=== PATIENT | female | born 1985 | race Caucasian/White ===

== ENCOUNTER → 2016-11-05 | Outpatient (CLI) | payer BC ==
[2016-11-05 10:02] LABS: Basophils % (A) 0 %; CHCM 32.4; Eosinophils % (A) 1 %; HCT 38.1 % (34.0-46.0); HDW 2.19; HGB 12.3 gm/dL (11.4-16.0); Luc # (Auto) 0.09; Luc % (Auto) 1; Lymphocytes # (A) 1.4 k/uL (1.0-4.8); Lymphocytes % (A) 19 %; MCH 30.9 pg (25.0-35.0); MCHC 32.2 g/dL (31.0-37.0); Mean Platelet Volume 7.7; Monocytes # (A) 0.3 k/uL (0-1.0); Monocytes % (A) 4 %; Neutrophils # (A) 5.4 k/uL (1.3-7.7); Neutrophils % (A) 75 %; RBC 3.97 m/uL (3.80-5.40); RDW 13.2 % (11.5-15.5); WBC 7.3 k/uL (3.8-10.6); WBC (Perox) 7.96
[2016-11-05 10:07] LABS: Glucose 86 mg/dL (74-99); Non-African American GFR(MDRD) >60 (>60 ml/min/1.73 sqM)
[2016-11-05 10:39] LABS: Hepatitis B Surface Ag Index 0.05
[2016-11-05 10:58] LABS: Iron 117 ug/dL (37-170)
--- NOTE | 2016-11-05 15:41 | US ---
EXAMINATION TYPE: US OB <= 14 wk fetus DATE OF EXAM: 11/05/2016 COMPARISON: NONE CLINICAL HISTORY: Z36 Confirm dates and viability. Confirm dates EXAM PERFORMED: Transabdominal (TA) EXAM MEASUREMENTS: GESTATIONAL AGE / DATING Physician Established: (8 weeks/3 days) EDC: 06/14/2017 Dates by LMP: Unknown Dates by First Scan: This is 1st scan Dates by Current Scan for: (8 weeks/0 days) EDC: 06/17/2017 MATERNAL ANATOMY Uterus: 12.5 x 5.9 x 7.3cm, anteverted Right Ovary: 2.6 x 2.1 x 1.7cm Left Ovary: 3.1 x 2.8 x 2.3cm Post CDS / Adnexa: wnl Presence of free fluid: no Presence of corpus luteal cyst: 1.3 x 1.3 x 1.6cm hypoechoic area left ovary, probable corpus luteum Presence of subchorionic bleed: no GESTATION / SURVEY CRL: 1.5cm (8 weeks/0 days) Yolk Sac (normal less than 6mm): 3.7mm Heart Rate: 150 bpm Rhythm: Normal IUP: Viable IUP Date of LMP: Unknown Beta HcG (if available): Not available Viable single IUP measuring 8 weeks 0 days with a heart rate of 150bpm and an estimated delivery date of 06/17/2017. IMPRESSION: 1. Single intrauterine gestation estimated 8 weeks 0 days gestation based on crown-rump length. This would've a calculated EDC of 06/17/2017. 2. Cardiac activity measures 150 bpm.
[2016-11-05 17:36] LABS: Treponemal Ab Non-Reactive (Non-Reactive)
[2016-11-06 05:45] LABS: Toxoplasma Antibody (IgG) <3.0 IU/mL (<7.2)
[2016-11-06 11:21] LABS: Vitamin D, 1, 25-Dihydroxy 111 pg/mL (20 - 79)
== END | disposition home or self-care (01) ==
LOC: RADUSWWP 08:52
PROVIDERS: ATTEND Obstetrics & Gynecology
DX: Z36 Encounter for antenatal screening of mother (principal); O26.812 Pregnancy related exhaustion and fatigue, second trimester; O99.711 Diseases of the skin and subcutaneous tissue complicating pregnancy, first trimester; L71.8 Other rosacea; L65.9 Nonscarring hair loss, unspecified; Z3A.08 8 weeks gestation of pregnancy
CPT/HCPCS: 76801; 82306; 82565; 82652; 82947; 83540; 84439; 84443; 85025; 86762; 86777; 86778; 86780; 86850; 86900; 86901; 87340; 87390

== ENCOUNTER 2017-06-11 05:50 | Inpatient (IN) | payer BC ==
--- NOTE | 2017-06-11 06:07 | P.HPOB ---
History of Present Illness H&P Date: 06/11/17 Chief Complaint: Requested induction of labor. This patient is a pleasant 31-year-old 3 para 2 female estimated date of confinement 06/14/2017 estimated gestational age 39-4/7 weeks who presents to labor and delivery for requested induction of labor. Patient's care has been uncomplicated. Review of Systems Gastrointestinal: Reports heartburn Genitourinary: Reports Menstruation: Reports amenorrhea Past Medical History Additional Past Medical History / Comment(s): Patient reports a history of a heart murmur without clinical significance. History of Any Multi-Drug Resistant Organisms: None Reported Past Surgical History: Tonsillectomy Past Anesthesia/Blood Transfusion Reactions: No Reported Reaction Past Psychological History: No Psychological Hx Reported Smoking Status: Former smoker Past Alcohol Use History: None Reported Past Drug Use History: None Reported Medications and Allergies Allergies Allergy/AdvReac Type Severity Reaction Status Date / Time No Known Allergies Allergy Verified 06/11/17 06:02 Exam - OBG Physical Exam Abdomen: bowel sounds normal, no diffuse tenderness, no bruit present, no guarding noted, no hepatomegaly, no splenomegaly, no mass Vulva: both: normal Vagina: normal moisture, no discharge Cervix: no lesion (Cervix in the office was 2 cm and soft.), no discharge Uterus: enlarged (Fundal height was 38 cm) Results blood work shows she is O positive, rubella immune, RPR nonreactive, hepatitis B negative, HIV nonreactive, group B strep was negative, Glucola was normal, ultrasounds have been normal. Assessment and Plan Assessment: This patient is a pleasant 31-year-old 3 para 2 female estimated gestational age 39-4/7 weeks who presents to labor and delivery for requested induction of labor. Plan is induction of labor and anticipate vaginal delivery. (1) Third trimester Current Visit: Yes Status: Acute Code(s): Z34.93 - ENCNTR FOR SUPRVSN OF NORMAL PREG, UNSP, THIRD TRIMESTER SNOMED Code(s): 30578657 (2) Elective induction of labor planned Current Visit: Yes Status: Acute Code(s): BLF5439 - SNOMED Code(s): 475634833
[2017-06-11] MEDS ORDERED: TERBUTALINE 1 MG/ML VIAL SQ PRN (06:12)
[2017-06-11] MEDS ORDERED: OXYTOCIN 10 UNIT/ML 1 ML VIAL IM PRN (06:12)
[2017-06-11] MEDS ORDERED: CARBOPROST TROMETHAMINE 250 MCG/ML 1 ML AMP IM PRN (06:12)
[2017-06-11] MEDS ORDERED: OXYTOCIN 20 UNITS/1000 ML NS 1,000 ML IV SCH ×2 (06:12→18:05)
[2017-06-11] MEDS ORDERED: LIDOCAINE 1% (PF) 10 MG/ML (30 ML SDV) SQ PRN (06:12)
[2017-06-11] MEDS ORDERED: METHYLERGONOVINE 0.2 MG/ML 1 ML AMP IM PRN (06:12)
[2017-06-11] MEDS: LACTATED RINGERS 1,000 ML IV SCH ×2 (06:36→14:00)
[2017-06-11 07:01] LABS: Basophils % (A) 0 %; Eosinophils # (A) 0.1 k/uL (0-0.7); Eosinophils % (A) 1 %; HCT 32.7 % (34.0-46.0); HGB 11.1 gm/dL (11.4-16.0); Lymphocytes % (A) 19 %; MCH 31.1 pg (25.0-35.0); MCHC 33.8 g/dL (31.0-37.0); MCV 91.9 fL (80.0-100.0); Monocytes # (A) 0.4 k/uL (0-1.0); Monocytes % (A) 4 %; Neutrophils # (A) 7.9 k/uL (1.3-7.7); Neutrophils % (A) 75 %; Platelet Count 271 k/uL (150-450); RBC 3.56 m/uL (3.80-5.40); RDW 14.2 % (11.5-15.5); WBC 10.5 k/uL (3.8-10.6)
[2017-06-11 07:45] VITALS: BMI 26.6
[2017-06-11] MEDS ORDERED: SODIUM CHLORIDE 0.9% 100 ML BAG ONE (11:31)
[2017-06-11] MEDS ORDERED: fentaNYL (PF) 50 MCG/ML 5 ML AMP ONE (11:31)
[2017-06-11] MEDS ORDERED: BUPIVACAINE (PF) 0.25% 30 ML VIAL ONE (11:31)
[2017-06-11] MEDS ORDERED: LANOLIN CREAM 5 GM TUBE TOPICAL PRN (18:05)
[2017-06-11] MEDS ORDERED: HYDROCORTISONE 2.5% RECTAL CREAM 30 GM TUBE RECTAL PRN (18:05)
[2017-06-11] MEDS ORDERED: BENZOCAINE/MENTHOL SPRAY 1 GM/SPRAY AEROSOL TOPICAL PRN (18:05)
[2017-06-11] MEDS ORDERED: Acetaminophen-Codeine 300-30mg TAB PO PRN ×2 (18:05)
[2017-06-11] MEDS ORDERED: SIMETHICONE 80 MG CHEWABLE PO PRN (18:05)
[2017-06-11] MEDS ORDERED: diphenhydrAMINE 50 MG/ML 1 ML VIAL IVP PRN (18:05)
[2017-06-11] MEDS ORDERED: WITCH HAZEL 1 EACH MED..PAD TOPICAL PRN (18:05)
[2017-06-11] MEDS ORDERED: diphenhydrAMINE 25 MG CAP PO PRN (18:05)
[2017-06-11] MEDS ORDERED: BISACODYL 10 MG SUPP RECTAL PRN (18:05)
[2017-06-11] MEDS ORDERED: ZOLPIDEM 5 MG TAB PO PRN (18:05)
--- NOTE | 2017-06-11 18:17 | P.PROBDLV ---
Vaginal Delivery Note - . Vaginal Delivery Note: Normal vaginal delivery viable male infant Apgars 8 and 9 delivery time is 1751 hrs. Please see dictated H&P for intimate details of this patient's admission. Brief summary this is a pleasant 31-year-old 3 para 2 female 39-4/7 weeks gestation who is admitted to labor and delivery for elective induction of labor. On admission patient is 2-3 cm dilated has artificial rupture membranes for clear fluid. Labor is induced with Pitocin per protocol. Labor progresses and she does get to complete. Patient pushes the head to the perineum posterior perineum is supported and we have controlled delivery of 's head over the intact perineum. Mouth and nares are bulb suctioned. There is a nuchal cord 1 which is loose and then reduced. We then have deliver the anterior and posterior shoulder and rest this 's body. This is a viable male Apgars are 8 and 9 delivery time is 1751 hrs. After delivery of the infant the umbilical cords doubly clamped and cut appears to be trivascular. Placenta is then spontaneously intact. There is H do not a nuchal cord. Inspection of perineum shows a first-degree laceration perineal and a superficial laceration the right labia The first-degree laceration is repaired with 3-0 Vicryl. In the labial laceration is reapproximated using a 40 on a small needle. Good reapproximation is noted. Estimated blood loss is 100 mL. There are no complications ARE correct 3. Infant and mother stable delivery room.
[2017-06-11] MEDS: ACETAMINOPHEN TAB 325 MG TAB PO PRN (21:35)
[2017-06-11] MEDS: SENNOSIDES-DOCUSATE SODIUM 1 EACH TAB PO SCH (21:36)
[2017-06-11] MEDS: IBUPROFEN 600 MG TAB PO PRN (21:36)
[2017-06-12] MEDS: ACETAMINOPHEN TAB 325 MG TAB PO PRN ×2 (01:54→12:59)
[2017-06-12] MEDS: IBUPROFEN 600 MG TAB PO PRN ×2 (03:51→11:07)
--- NOTE | 2017-06-12 06:50 | P.PNOBGVD ---
Subjective - Subjective Patient reports: Reports appetite normal, Reports voiding normally, Reports pain well controlled, Reports ambulating normally : doing well Objective - Latest Vital Signs Latest vital signs: Vital Signs Temp Pulse Resp BP Pulse Ox 06/12/17 03:54 98.4 F 72 18 102/60 97 06/12/17 00:00 98.5 F 78 16 105/74 06/11/17 20:14 97.9 F 75 18 118/71 06/11/17 19:44 99.4 F 78 16 118/63 06/11/17 19:14 90 16 117/66 06/11/17 18:59 90 16 112/58 06/11/17 18:44 98.3 F 81 16 113/58 06/11/17 18:29 86 16 113/57 06/11/17 18:14 100 16 116/65 Intake and Output 06/11/17 06/11/17 06/12/17 14:59 22:59 06:59 Output Total 600 Balance -600 Output: Urine 500 Straight 500 Estimated Blood Loss 100 Other: # Voids 1 1 - Exam Lungs: bilateral: normal Chest: Normal S1, Normal S2 Extremities: Present: normal Abdomen: Present: normal appearance, soft Uterus: Present: normal, firm - Labs Labs: Abnormal Lab Results - Last 24 Hours (Table) 06/11/17 Range/Units 06:10 RBC 3.56 L (3.80-5.40) m/uL Hgb 11.1 L (11.4-16.0) gm/dL Hct 32.7 L (34.0-46.0) % Neutrophils # 7.9 H (1.3-7.7) k/uL Assessment and Plan Assessment: day #1. Patient is resting without complaints and wishes to go home. Vital signs are stable she is afebrile. Uterus is firm nontender and she is having normal lochia. My impression is a normal course. Plan is to continue routine care discharge home later today. (1) Third trimester Current Visit: Yes Status: Acute Code(s): Z34.93 - ENCNTR FOR SUPRVSN OF NORMAL PREG, UNSP, THIRD TRIMESTER SNOMED Code(s): 32702690 (2) Elective induction of labor planned Current Visit: Yes Status: Acute Code(s): SNK9045 - SNOMED Code(s): 697934405
--- NOTE | 2017-06-12 06:53 | P.DS ---
Providers Date of admission: 06/11/17 05:50 Expected date of discharge: 06/12/17 Attending physician: Lyle Piedra Primary care physician: Karl Bonilla - Discharge Diagnosis(es) (1) Third trimester Current Visit: Yes Status: Acute (2) Elective induction of labor planned Current Visit: Yes Status: Acute Hospital Course: Please see dictated H&P for intimate details of this patient's admission. In brief summary this is a pleasant 31-year-old 3 para 2 female 39-4/7 weeks gestation who is admitted to labor and delivery for requested induction of labor. Patient is admitted has uncomplicated induction of labor goes on to have a vaginal delivery viable male infant. Please see dictated delivery note. day #1 patient without complaints felt to be stable for discharge home follow up with me in 6 weeks. Procedures: Normal vaginal delivery. Patient Condition at Discharge: Good Plan - Discharge Summary New Discharge Prescriptions: New Acetaminophen-Codeine 300-30mg [Tylenol w/codeine #3] 1 - 2 each PO Q4HR PRN #30 tab PRN Reason: Mild Pain exceeding Tylenol Ibuprofen [Motrin] 600 mg PO Q6HR PRN #40 tab PRN Reason: Mild Pain Or Fever >= 100.5 No Action 114/Iron A-G/Folate 1 [Prenate Elite Tablet] 1 each PO DAILY Discharge Medication List 114/Iron A-G/Folate 1 [Prenate Elite Tablet] 1 each PO DAILY 06/11/17 [ History] Acetaminophen-Codeine 300-30mg [Tylenol w/codeine #3] 1 - 2 each PO Q4HR PRN # 30 tab 06/12/17 [Rx] Ibuprofen [Motrin] 600 mg PO Q6HR PRN #40 tab 06/12/17 [Rx] Follow up Appointment(s)/Referral(s): Lyle Piedra MD [STAFF PHYSICIAN] - 07/31/17 9:15 am Patient Instructions/Handouts: Vaginal Delivery (DC) Activity/Diet/Wound Care/Special Instructions: No intercourse or anything per vagina for 6 weeks. Please call if any fever, chills, excessive vaginal bleeding, and/or abdominal pain. Discharge Disposition: HOME SELF-CARE
[2017-06-12 09:08] VITALS: RESP 16
[2017-06-12] MEDS: SENNOSIDES-DOCUSATE SODIUM 1 EACH TAB PO SCH ×2 (09:10→11:08)
[2017-06-12 18:19] VITALS: BP 110/70; PULSE 90; TEMP 98.2
== END 2017-06-12 18:24 | disposition home or self-care (01) | DRG 775 ==
LOC: 4FBP 05:50
PROVIDERS: ADMIT Obstetrics & Gynecology; ATTEND Obstetrics & Gynecology
PROC: 3E033VJ Introduction of Other Hormone into Peripheral Vein, Percutaneous Approach (ICD-10-PCS; principal; 2017-06-11)
PROC: 3E0R3NZ Introduction of Analgesics, Hypnotics, Sedatives into Spinal Canal, Percutaneous Approach (ICD-10-PCS; principal; 2017-06-11)
PROC: 10907ZC Drainage of Amniotic Fluid, Therapeutic from Products of Conception, Via Natural or Artificial Opening (ICD-10-PCS; principal; 2017-06-11)
PROC: 10E0XZZ Delivery of Products of Conception, External Approach (ICD-10-PCS; principal; 2017-06-11)
PROC: 00HU33Z Insertion of Infusion Device into Spinal Canal, Percutaneous Approach (ICD-10-PCS; principal; 2017-06-11)
PROC: 0HQ9XZZ Repair Perineum Skin, External Approach (ICD-10-PCS; principal; 2017-06-11)
DX: O69.81X0 Labor and delivery complicated by cord around neck, without compression, not applicable or unspecified (principal); O70.0 First degree perineal laceration during delivery; Z37.0 Single live birth; Z3A.39 39 weeks gestation of pregnancy; Z87.891 Personal history of nicotine dependence
CPT/HCPCS: 85025; 88307

== ENCOUNTER 2021-12-14 10:07 | Emergency (ER) | payer BC ==
[2021-12-14 10:27] VITALS: RESP 18; TEMP 98.2
[2021-12-14] MEDS ORDERED: ACETAMINOPHEN TAB 325 MG TAB PO STA (10:48)
--- NOTE | 2021-12-14 10:52 | ED ---
General Adult HPI - General Chief complaint: Fall Stated complaint: Fall down stairs Time Seen by Provider: 12/14/21 10:26 Source: patient, family, RN notes reviewed Mode of arrival: wheelchair Limitations: no limitations - History of Present Illness Initial comments: 36-year-old female presents to the emergency room for a chief complaint of fall. Patient fell down 11 stairs. Patient and her family member were carrying a washer down the stairs. Patient was at the bottom of the washer. The washer started to fall and pushed the patient on the stairs landing on top of her. Patient did hit her head and has pain in her forehead and lip area as well as nose. She is also complaining of some right shoulder pain and right foot pain. She did not lose consciousness but does have a headache. No blood thinners.Patient has no other complaints at this time including shortness of breath, chest pain, abdominal pain, nausea or vomiting, or visual changes. - Related Data Home Medications Medication Instructions Recorded Confirmed 114/Iron A-G/Folate 1 1 each PO DAILY 06/11/17 06/11/17 [Prenate Elite Tablet] Previous Rx's Medication Instructions Recorded Acetaminophen-Codeine 300-30mg 1 - 2 each PO Q4HR PRN #30 tab 06/12/17 [Tylenol w/codeine #3] Ibuprofen [Motrin] 600 mg PO Q6HR PRN #40 tab 06/12/17 Allergies Allergy/AdvReac Type Severity Reaction Status Date / Time No Known Allergies Allergy Verified 12/14/21 10:26 Review of Systems ROS Statement: Those systems with pertinent positive or pertinent negative responses have been documented in the HPI. ROS Other: All systems not noted in ROS Statement are negative. Past Medical History Additional Past Medical History / Comment(s): Patient reports a history of a heart murmur without clinical significance. History of Any Multi-Drug Resistant Organisms: None Reported Past Surgical History: Tonsillectomy Past Anesthesia/Blood Transfusion Reactions: No Reported Reaction Past Psychological History: No Psychological Hx Reported Past Alcohol Use History: None Reported Past Drug Use History: None Reported - Past Family History Mother Family Medical History: Hypertension General Exam - General Exam Comments Initial Comments: Right shoulder: Patient has some pain with movement of the right shoulder. She is able to flex and abduction shoulder to 90. Radial pulse 2+. No obvious external signs of injuries. right foot: Patient has abrasion noted to the dorsum of right foot first metatarsal area and some tenderness without ecchymosis. Dp pulse 2+ Limitations: no limitations General appearance: alert, in no apparent distress Head exam: Present: atraumatic Eye exam: Present: normal appearance, PERRL, EOMI. Absent: scleral icterus, conjunctival injection ENT exam: Present: normal exam, mucous membranes moist, TM's normal bilaterally, normal external ear exam, other (ecchymosis and edema to forehead). Absent: normal oropharynx (small < 1 cm laceration noted up inner upper lip. No loose teeth) Neck exam: Present: normal inspection, full ROM. Absent: tenderness Respiratory exam: Present: normal lung sounds bilaterally, chest wall tenderness (Patient has some right-sided superior anterior chest wall tenderness). Absent: respiratory distress, wheezes Cardiovascular Exam: Present: regular rate, normal rhythm, normal heart sounds GI/Abdominal exam: Present: soft, normal bowel sounds, other (No ecchymosis of the abdomen or pelvis). Absent: distended, tenderness, guarding, rebound Course Vital Signs 12/14/21 10:20 Temperature 98.2 F Pulse Rate 73 Respiratory 18 Rate Blood Pressure 120/81 O2 Sat by Pulse 99 Oximetry Medical Decision Making - Medical Decision Making CT brain shows no acute posttraumatic changes. CT cervical spine shows no acute osseous abnormality, slight kyphosis which could be related to muscle spasm. Face CT demonstrated no suspicious acute changes to the facial bones. Shoulder, chest, and foot x-rays are negative. Foot x-ray did show a lucency within the base of the third metatarsal felt likely to be artifact. It does not correlate to the patient's location of pain which is the first metatarsal at this time patient is stable for discharge home. She is getting much improved with Tylenol but would like a [place] on her way out with some Zofran. Patient will follow-up with her doctor. She will return here for any worsening symptoms. Disposition Clinical Impression: Fall, Hematoma of frontal scalp, Head injury Disposition: HOME SELF-CARE Condition: Good Instructions (If sedation given, give patient instructions): Hematoma (ED), Head Injury (ED) Additional Instructions: Take Tylenol for pain. Please ice the area. Follow up with your doctor. Return to the ER for any worsening symptoms. Is patient prescribed a controlled substance at d/c from ED?: No Referrals: Michelle Pang MD [REFERRING] - 1-2 days Time of Disposition: 12:38
--- NOTE | 2021-12-14 12:16 | CT ---
EXAMINATION TYPE: CT brain aleisha wo con DATE OF EXAM: 12/14/2021 COMPARISON: None HISTORY: Fall down [address] DLP: 1144.4 mGycm, Automated exposure control for dose reduction was used. CONTRAST: Patient injected with 0 mL of Isovue 300. CT of the brain is performed utilizing 3 mm thick sections through the posterior fossa and 3 mm thick sections through the remaining calvarium. Study is performed within 24 hours of arrival to the hospital. No abnormal hyperdensity is present to suggest an acute intracranial hemorrhage. No mass lesion is evident. No acute infarcts are evident. Ventricles and sulci are appropriate for the patient age. No acute fractures are evident. Paranasal sinuses and mastoid air cells within the [id number] are clear. IMPRESSIONS: 1. No acute posttraumatic changes CT brain. MRI can be performed as clinically indicated. CT cervical spine. COMPARISON: None CT of the cervical spine is performed in the axial plane at 2 mm thick sections. Reconstructed image s in the coronal, and sagittal plane are reviewed on the computer. No acute fractures are evident. There is a slight kyphosis which could be related to patient positioning or muscle spasm. Disc heights are preserved. Vertebral body heights are preserved. No spinal canal stenosis is evident. No neural foraminal stenosis is evident. IMPRESSIONS: 1. No acute osseous abnormality. 2. There is slight kyphosis which could be related to patient position or muscle spasm.
--- NOTE | 2021-12-14 12:23 | CT ---
EXAMINATION TYPE: CT facial bones wo con DATE OF EXAM: 12/14/2021 COMPARISON: None HISTORY: Fall on [address] DLP: 1144.4 mGycm CONTRAST: 0 mL of Isovue 300 The paranasal sinuses are examined in the axial plane at 2 mm thick sections. Reconstructed images i n the coronal plane were obtained. Soft tissues appear normal. Some dental amalgam scatter artifact into the mandible. Maxillary spine a ppears intact. No acute fracture The maxillary sinuses are clear. The ethmoid air cells are clear. The sphenoid sinuses are clear. The frontal sinuses are clear. The septum is evaluated. There is septal deviation to the . The ostiomeatal units are patent. IMPRESSIONS: 1. No suspicious acute changes facial bones. Follow-up can be performed as clinically indicated.
--- NOTE | 2021-12-14 12:24 | XR ---
EXAMINATION TYPE: XR chest 1V DATE OF EXAM: 12/14/2021 COMPARISON: None INDICATION: Fall down stairs TECHNIQUE: Single frontal view of the chest is obtained. FINDINGS: The heart size is normal. The pulmonary vasculature is normal. The lungs are clear. IMPRESSION: 1. No acute pulmonary process.
--- NOTE | 2021-12-14 12:24 | XR ---
EXAMINATION TYPE: XR shoulder complete RT DATE OF EXAM: 12/14/2021 COMPARISON: NONE HISTORY: Pain TECHNIQUE: Shoulder examined in 3 projections FINDINGS: The humeral head articulates with the glenoid. The acromio-clavicular junction is normal. No acute fractures or dislocations are evident. A follow up study can be performed 7-10 days from acute trauma for continued pain. IMPRESSION: 1. No acute osseous abnormality right shoulder
--- NOTE | 2021-12-14 12:26 | XR ---
EXAMINATION TYPE: XR foot complete RT DATE OF EXAM: 12/14/2021 COMPARISON: None HISTORY: Fall down stairs TECHNIQUE: Three-view right foot FINDINGS: No acute fracture or dislocation is evident. There is some lucency within the base of the t hird metatarsal on the AP projection not identified on the oblique view. This may be artifact. Correl ate with location of the patient's pain. Follow-up can be performed as clinically indicated. Alignmen t appears appropriate. Soft tissues appear normal. Joint spaces are preserved. Follow up exams can be performed 7-10 days from acute trauma for continued pain. IMPRESSION: 1. No definite displaced fractures identified. There is a lucency within the base of the third metat arsal felt to more likely be artifact. Correlate with location of the patient's pain. Follow-up can b e performed as clinically indicated.
[2021-12-14] MEDS ORDERED: ONDANSETRON ODT 4 MG TAB PO STA (12:47)
[2021-12-14] MEDS ORDERED: HYDROcodone/APAP 5-325MG 1 EACH TAB PO STA (12:47)
[2021-12-14 13:09] VITALS: BP 122/84; PULSE 74
== END 2021-12-14 13:09 | disposition home or self-care (01) ==
LOC: EC 10:07
DX: S01.511A Laceration without foreign body of lip, initial encounter (principal); S00.03XA Contusion of scalp, initial encounter; S09.90XA Unspecified injury of head, initial encounter; M25.511 Pain in right shoulder; W10.8XXA Fall (on) (from) other stairs and steps, initial encounter; Y92.009 Unspecified place in unspecified non-institutional (private) residence as the place of occurrence of the external cause
CPT/HCPCS: 70450; 70486; 71045; 72125; 99284